=== PATIENT | female | born 1985 | race Hispanic/Latino ===

== ENCOUNTER 2019-04-23 09:15 | Inpatient (IN) | payer MEDICAID, OTHER, SELFPAY ==
[2019-04-23 10:01] VITALS: BMI 25.4
[2019-04-23] MEDS: Lactated Ringer's 1,000 ML IV SCH ×2 (10:57→18:03)
[2019-04-23] MEDS ORDERED: Diphenoxylate HCl/Atropine Tablet PO PRN (11:02)
[2019-04-23] MEDS ORDERED: HYDROcodone/Acetaminophen 5/325 mg Tablet PO PRN (11:02)
[2019-04-23] MEDS ORDERED: Misoprostol 200 MCG TAB PR PRN (11:02)
[2019-04-23] MEDS ORDERED: NS / Oxytocin 40 units/1000ml 1,000 ML IV PRN (11:02)
[2019-04-23] MEDS ORDERED: Methylergonovine 0.2 MG/ML VIAL IM PRN (11:02)
[2019-04-23] MEDS ORDERED: Promethazine HCl 25 MG/ML VIAL IM PRN (11:02)
[2019-04-23] MEDS ORDERED: Ondansetron PF 4 MG/2 ML Vial IVP PRN (11:02)
[2019-04-23] MEDS ORDERED: Lidocaine 1% (PF) 30 ML VIAL SC PRN (11:02)
[2019-04-23] MEDS ORDERED: Butorphanol Tartrate 1 MG/ML VIAL SLOW IVP PRN (11:02)
[2019-04-23] MEDS ORDERED: Ibuprofen 800 MG TAB PO PRN (11:02)
[2019-04-23] MEDS ORDERED: Carboprost 250 MCG/ML AMP IM PRN (11:02)
[2019-04-23] MEDS ORDERED: hydrALAZINE 20 MG/ML VIAL SLOW IVP PRN (11:02)
[2019-04-23 11:11] LABS: Hemoglobin 12.7 g/dL (12.0-16.0); Mean Corpuscular HGB CONC 34.8 g/dL (32.0-36.0); Mean Corpuscular Volume 86.3 fL (78.0-98.0); Mean Platelet Volume 7.7 fL (7.4-10.4); Platelet Count 299 thou/uL (130-400); Red Blood Cell (RBC) Count 4.22 mill/uL (4.20-5.40); White Blood Cell (WBC) Count 9.7 thou/uL (4.8-10.8)
[2019-04-23] MEDS ORDERED: NS w/ Oxytocin 10 units 500 ML IV SCH ×2 (11:15)
[2019-04-23] MEDS ORDERED: NS w/ Oxytocin 10 units 500 ML ONE (11:27)
[2019-04-23 11:51] LABS: HBSAg Index 0.11 S/CO (0-0.99); Hep B Surf Ag Non-Reactive S/CO (NonReactive); Syphilis Antibody Nonreactive (Nonreactive); Syphilis Antibody Index 0.03 S/CO (<1.00 Non-Reactive)
[2019-04-23] MEDS: NS / Oxytocin 40 units/1000ml 1,000 ML IV SCH ×2 (21:00→22:30)
[2019-04-24] MEDS ORDERED: Promethazine HCl 25 MG/ML VIAL IM PRN (04:10)
[2019-04-24] MEDS ORDERED: Benzocaine-Menthol 82.5 ML CAN TOP PRN (04:10)
[2019-04-24] MEDS ORDERED: Milk Of Magnesia 30 ML UDCUP PO PRN (04:10)
[2019-04-24] MEDS ORDERED: Preparation H Ointment 28 GM TUBE PR PRN (04:10)
[2019-04-24] MEDS ORDERED: HYDROcodone/Acetaminophen 5/325 mg Tablet PO PRN ×2 (04:10)
[2019-04-24] MEDS ORDERED: Lanolin Ointment 7 GM TUBE TOP PRN (04:10)
[2019-04-24] MEDS ORDERED: hydrALAZINE 20 MG/ML VIAL SLOW IVP PRN (04:10)
[2019-04-24] MEDS ORDERED: Ondansetron PF 4 MG/2 ML Vial IVP PRN (04:10)
[2019-04-24] MEDS ORDERED: Bisacodyl 10 MG SUPP PR PRN (04:10)
[2019-04-24] MEDS: Ibuprofen 800 MG TAB PO SCH ×4 (05:23→22:01)
[2019-04-24] MEDS: Lactated Ringer's 1,000 ML IV SCH (05:47)
[2019-04-24] MEDS ORDERED: Adacel (T-DAP) 0.5 ML SYRINGE IM ONE (09:00)
[2019-04-24] MEDS: Docusate Calcium (SURFAK) 240 MG CAP PO SCH ×2 (09:20→22:05)
[2019-04-24] MEDS: Prenatal Vitamin 1 TAB PO SCH (09:20)
[2019-04-24] MEDS: Ferrous Sulfate 325 MG TAB PO SCH ×2 (09:21→19:32)
[2019-04-25 04:36] LABS: Hemoglobin 10.7 g/dL (12.0-16.0); Mean Corpuscular HGB CONC 33.8 g/dL (32.0-36.0); Mean Corpuscular Hemoglobin 29.8 pg (27.0-31.0); Mean Corpuscular Volume 88.1 fL (78.0-98.0); Mean Platelet Volume 7.3 fL (7.4-10.4); Platelet Count 257 thou/uL (130-400); RBC Distribution Width 13.1 % (11.5-14.5); Red Blood Cell (RBC) Count 3.58 mill/uL (4.20-5.40)
[2019-04-25] MEDS: Ibuprofen 800 MG TAB PO SCH ×2 (06:15→15:09)
[2019-04-25] MEDS: Ferrous Sulfate 325 MG TAB PO SCH ×2 (08:48→17:43)
[2019-04-25] MEDS: Prenatal Vitamin 1 TAB PO SCH (09:31)
[2019-04-25] MEDS: Docusate Calcium (SURFAK) 240 MG CAP PO SCH (09:35)
[2019-04-25 12:13] VITALS: BP 130/75; TEMP 98
== END 2019-04-25 19:36 | disposition home or self-care (01) | DRG 807 ==
LOC: L&D/OP 09:15 → L&D 10:43 → 3SE 04-24 05:15
PROVIDERS: ADMIT Family Medicine; ATTEND Family Medicine
PROC: 10E0XZZ Delivery of Products of Conception, External Approach (ICD-10-PCS; principal; 2019-04-23)
PROC: 0KQM0ZZ Repair Perineum Muscle, Open Approach (ICD-10-PCS; 2019-04-23)
DX: O70.1 Second degree perineal laceration during delivery (principal); Z37.0 Single live birth; Z3A.40 40 weeks gestation of pregnancy
CPT/HCPCS: 36415; 85027; 86780; 86850; 86900; 86901; 87340; 99285; J2590